=== PATIENT | female | born 1980 | race Two or more races ===

== ENCOUNTER 2025-02-24 21:44 | Emergency (ER) | payer MEDICAID ==
[~2025-02-24] VITALS: Ht 157.5 cm; Wt 59.1 kg
[2025-02-24 21:52] VITALS: BP 121/83; PULSE 65; RESP 16; TEMP 98.1; O2SAT 100
[2025-02-24] MEDS: methocarbamoL 500 MG TABLET PO ONE (23:04)
[2025-02-24] MEDS: ACETAMINOPHEN 500 MG TABLET PO ONE (23:04)
[2025-02-24] MEDS: LIDOCAINE 5% TRANSDERMAL PATCH TD ONE (23:05)
[2025-02-24] MEDS ORDERED: METH-812 PO (23:50)
== END 2025-02-25 00:22 | disposition home or self-care (01) ==
LOC: EMS 21:47
DX: S16.1XXA Strain of muscle, fascia and tendon at neck level, initial encounter (principal); S39.012A Strain of muscle, fascia and tendon of lower back, initial encounter; V49.40XA Driver injured in collision with unspecified motor vehicles in traffic accident, initial encounter; Y93.I9 Activity, other involving external motion; Y92.488 Other paved roadways as the place of occurrence of the external cause; Y99.8 Other external cause status
CPT/HCPCS: 99284; Z7502; Z7610